=== PATIENT | female | born 1965 | race Caucasian/White ===

== ENCOUNTER 2020-05-18 11:46 | Inpatient (IN) | payer OTHER ==
[~2020-05-18] VITALS: Ht 162.6 cm; Wt 79.4 kg
[2020-05-18 13:09] LABS: RED BLOOD COUNT 5.03 M/UL (4.00-5.10); WHITE BLOOD COUNT 4.6 K/UL (4.5-11.0)
[2020-05-18] MEDS ORDERED: BUSPAR 10MG10 MG PO (18:02)
[2020-05-18] MEDS ORDERED: GLYBURIDE2.5 MG PO (18:03)
[2020-05-18] MEDS ORDERED: ISOSORBIDE DINI30 MG PO (18:04)
[2020-05-18] MEDS ORDERED: ZESTRIL5 MG PO (18:05)
[2020-05-18] MEDS ORDERED: METFORMIN ER1000 MG PO (18:05)
[2020-05-18] MEDS ORDERED: NAPRELAN500 MG PO (18:06)
[2020-05-18] MEDS ORDERED: OMEPRAZOLE20 M1 PO (18:07)
[2020-05-18] MEDS ORDERED: LIPITOR40 MG PO (18:08)
[2020-05-18] MEDS ORDERED: CYMBALTA60 MG PO (18:09)
[2020-05-18] MEDS ORDERED: REMERON15 MG PO (18:10)
[2020-05-18] MEDS ORDERED: ROBAXIN 750 MG750 MG GT (18:10)
[2020-05-19 08:21] LABS: WHITE BLOOD COUNT 2.3 K/UL (4.5-11.0)
[2020-05-19 08:22] LABS: HEMOGLOBIN 11.2 gm/dl (12.3-15.3); RED BLOOD COUNT 3.99 M/UL (4.00-5.10)
[2020-05-19 08:38] LABS: BUN/CREATININE RATIO 26 (0-10)
[2020-05-20 05:44] LABS: HEMOGLOBIN 11.4 gm/dl (12.3-15.3); RED BLOOD COUNT 4.2 M/UL (4.00-5.10)
[2020-05-20 05:48] LABS: WHITE BLOOD COUNT 9.5 K/UL (4.5-11.0)
[2020-05-20 05:52] LABS: BUN/CREATININE RATIO 23 (0-10)
--- NOTE | 2020-05-20 23:08 | NUR ---
pt blood glucose 329 pt drinking regular soda. I explained that this was causing her bg to be elevated. Will pass on to tech and dayshift.
[2020-05-21 04:18] LABS: HEMOGLOBIN 11.8 gm/dl (12.3-15.3); RED BLOOD COUNT 4.29 M/UL (4.00-5.10)
[2020-05-21 04:57] LABS: BUN/CREATININE RATIO 31 (0-10)
[2020-05-22 04:49] LABS: HEMOGLOBIN 12.5 gm/dl (12.3-15.3); RED BLOOD COUNT 4.46 M/UL (4.00-5.10); WHITE BLOOD COUNT 10.2 K/UL (4.5-11.0)
[2020-05-22 05:13] LABS: BUN/CREATININE RATIO 25 (0-10)
--- NOTE | 2020-05-22 18:34 | NUR ---
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 ALLOWED PATIENT TO CONTACT FAMILY, OFFERED GUARDS OPPORTUNITY TO MONITOR PHONE CALL IN PATIENT ROOM AND THEY DECLINED.
--- NOTE | 2020-05-22 20:27 | NUR ---
PATIENT DESAT 70-80S ON CPAP. MD NOTIFIED. ER MD CALLED TO INTUBATE. 6.5 ETT PLACED 23 AT LIP. CENTRAL LINE PLACED RIJ. PT TOLERATED WELL.
[2020-05-23 05:11] LABS: HEMOGLOBIN 12.4 gm/dl (12.3-15.3); RED BLOOD COUNT 4.42 M/UL (4.00-5.10); WHITE BLOOD COUNT 14.6 K/UL (4.5-11.0)
[2020-05-23 05:34] LABS: BUN/CREATININE RATIO 35 (0-10)
[2020-05-24 05:36] LABS: HEMOGLOBIN 11.5 gm/dl (12.3-15.3); RED BLOOD COUNT 4.14 M/UL (4.00-5.10)
[2020-05-24 05:39] LABS: WHITE BLOOD COUNT 7.3 K/UL (4.5-11.0)
[2020-05-24 06:19] LABS: BUN/CREATININE RATIO 43 (0-10)
[2020-05-26 03:53] LABS: HEMOGLOBIN 11.1 gm/dl (12.3-15.3); RED BLOOD COUNT 3.96 M/UL (4.00-5.10)
[2020-05-26 04:20] LABS: BUN/CREATININE RATIO 45 (0-10)
[2020-05-27 05:39] LABS: HEMOGLOBIN 11.2 gm/dl (12.3-15.3); RED BLOOD COUNT 4.01 M/UL (4.00-5.10)
[2020-05-27 05:40] LABS: WHITE BLOOD COUNT 14.7 K/UL (4.5-11.0)
[2020-05-27 06:03] LABS: BUN/CREATININE RATIO 37 (0-10)
[2020-05-28 05:12] LABS: HEMOGLOBIN 9.9 gm/dl (12.3-15.3); WHITE BLOOD COUNT 11.2 K/UL (4.5-11.0)
[2020-05-28 05:13] LABS: RED BLOOD COUNT 3.52 M/UL (4.00-5.10)
[2020-05-28 05:34] LABS: BUN/CREATININE RATIO 51 (0-10)
[2020-05-29 04:43] LABS: HEMOGLOBIN 9.9 gm/dl (12.3-15.3); RED BLOOD COUNT 3.51 M/UL (4.00-5.10)
[2020-05-29 04:56] LABS: BUN/CREATININE RATIO 37 (0-10)
[2020-05-30 05:57] LABS: HEMOGLOBIN 10.2 gm/dl (12.3-15.3); RED BLOOD COUNT 3.63 M/UL (4.00-5.10); WHITE BLOOD COUNT 18.1 K/UL (4.5-11.0)
[2020-05-30 06:21] LABS: BUN/CREATININE RATIO 51 (0-10)
[2020-05-31 03:55] LABS: HEMOGLOBIN 8.7 gm/dl (12.3-15.3)
[2020-05-31 03:56] LABS: RED BLOOD COUNT 3.15 M/UL (4.00-5.10); WHITE BLOOD COUNT 7.1 K/UL (4.5-11.0)
[2020-05-31 04:18] LABS: BUN/CREATININE RATIO 57 (0-10)
[2020-06-01 03:43] LABS: HEMOGLOBIN 9.1 gm/dl (12.3-15.3); RED BLOOD COUNT 3.26 M/UL (4.00-5.10); WHITE BLOOD COUNT 8.7 K/UL (4.5-11.0)
[2020-06-01 04:00] LABS: BUN/CREATININE RATIO 50 (0-10)
[2020-06-02 04:21] LABS: WHITE BLOOD COUNT 7.7 K/UL (4.5-11.0)
[2020-06-02 04:22] LABS: HEMOGLOBIN 11.3 gm/dl (12.3-15.3); RED BLOOD COUNT 4.08 M/UL (4.00-5.10)
[2020-06-02 04:44] LABS: BUN/CREATININE RATIO 52 (0-10)
[2020-06-03 04:29] LABS: HEMOGLOBIN 10.5 gm/dl (12.3-15.3); RED BLOOD COUNT 3.76 M/UL (4.00-5.10); WHITE BLOOD COUNT 8.7 K/UL (4.5-11.0)
[2020-06-03 04:57] LABS: BUN/CREATININE RATIO 47 (0-10)
[2020-06-04 04:53] LABS: HEMOGLOBIN 9.9 gm/dl (12.3-15.3); RED BLOOD COUNT 3.52 M/UL (4.00-5.10)
[2020-06-04 04:54] LABS: WHITE BLOOD COUNT 13.9 K/UL (4.5-11.0)
[2020-06-04 05:20] LABS: BUN/CREATININE RATIO 67 (0-10)
[2020-06-04 10:14] LABS: HBSAG SCREEN Negative (Negative); HEP A AB, IGM Negative (Negative); HEP B CORE AB, IGM Negative (Negative); HEP C VIRUS AB 3.2 (0.0-0.9)
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
[2020-06-05 05:01] LABS: HEMOGLOBIN 10.1 gm/dl (12.3-15.3); RED BLOOD COUNT 3.64 M/UL (4.00-5.10); WHITE BLOOD COUNT 15.7 K/UL (4.5-11.0)
[2020-06-05 05:19] LABS: BUN/CREATININE RATIO 50 (0-10)
[2020-06-06 05:32] LABS: HEMOGLOBIN 10.5 gm/dl (12.3-15.3); RED BLOOD COUNT 3.85 M/UL (4.00-5.10); WHITE BLOOD COUNT 12.6 K/UL (4.5-11.0)
[2020-06-06 05:59] LABS: BUN/CREATININE RATIO 46 (0-10)
[2020-06-07 05:04] LABS: HEMOGLOBIN 9.8 gm/dl (12.3-15.3); RED BLOOD COUNT 3.48 M/UL (4.00-5.10)
[2020-06-07 05:14] LABS: WHITE BLOOD COUNT 18.7 K/UL (4.5-11.0)
[2020-06-07 05:50] LABS: BUN/CREATININE RATIO 41 (0-10)
[2020-06-08 05:38] LABS: HEMOGLOBIN 9.2 gm/dl (12.3-15.3); RED BLOOD COUNT 3.29 M/UL (4.00-5.10); WHITE BLOOD COUNT 15.8 K/UL (4.5-11.0)
[2020-06-08 06:16] LABS: BUN/CREATININE RATIO 35 (0-10)
[2020-06-09 05:17] LABS: HEMOGLOBIN 8.9 gm/dl (12.3-15.3); RED BLOOD COUNT 3.19 M/UL (4.00-5.10); WHITE BLOOD COUNT 13.8 K/UL (4.5-11.0)
[2020-06-09 05:38] LABS: BUN/CREATININE RATIO 43 (0-10)
[2020-06-10 04:52] LABS: HEMOGLOBIN 8.8 gm/dl (12.3-15.3); RED BLOOD COUNT 3.16 M/UL (4.00-5.10); WHITE BLOOD COUNT 10.7 K/UL (4.5-11.0)
[2020-06-10 05:13] LABS: BUN/CREATININE RATIO 69 (0-10)
[2020-06-11 04:59] LABS: HEMOGLOBIN 9.1 gm/dl (12.3-15.3); RED BLOOD COUNT 3.24 M/UL (4.00-5.10); WHITE BLOOD COUNT 8.2 K/UL (4.5-11.0)
[2020-06-11 05:21] LABS: BUN/CREATININE RATIO 51 (0-10)
[2020-06-12 03:52] LABS: HEMOGLOBIN 8.5 gm/dl (12.3-15.3); RED BLOOD COUNT 2.97 M/UL (4.00-5.10); WHITE BLOOD COUNT 9.5 K/UL (4.5-11.0)
[2020-06-12 04:20] LABS: BUN/CREATININE RATIO 51 (0-10)
[2020-06-13 03:31] LABS: HEMOGLOBIN 8.7 gm/dl (12.3-15.3); RED BLOOD COUNT 3.16 M/UL (4.00-5.10)
[2020-06-13 03:32] LABS: WHITE BLOOD COUNT 15.1 K/UL (4.5-11.0)
[2020-06-13 03:50] LABS: BUN/CREATININE RATIO 31 (0-10)
[2020-06-14 05:21] LABS: HEMOGLOBIN 8.8 gm/dl (12.3-15.3); RED BLOOD COUNT 3.24 M/UL (4.00-5.10)
[2020-06-14 05:22] LABS: WHITE BLOOD COUNT 9.1 K/UL (4.5-11.0)
[2020-06-14 05:41] LABS: BUN/CREATININE RATIO 42 (0-10)
[2020-06-15 05:33] LABS: HEMOGLOBIN 8.6 gm/dl (12.3-15.3); RED BLOOD COUNT 3.07 M/UL (4.00-5.10); WHITE BLOOD COUNT 7.7 K/UL (4.5-11.0)
[2020-06-15 05:55] LABS: BUN/CREATININE RATIO 28 (0-10)
[2020-06-16 05:04] LABS: RED BLOOD COUNT 3.25 M/UL (4.00-5.10); WHITE BLOOD COUNT 8.3 K/UL (4.5-11.0)
[2020-06-16 05:58] LABS: BUN/CREATININE RATIO 26 (0-10)
[2020-06-16 16:37] LABS: ADENOVIRUS F 40/41 Not Detected (Negative); ASTROVIRUS Not Detected (Negative); CAMPYLOBACTER Not Detected (Negative); CLOSTRIDIUM DIFFICILE TOX A/B Not Detected (Negative); CRYPTOSPORIDIUM Not Detected (Negative); E.COLI 0157 Not Detected (Negative); ENTAMOEBA HISTOLYTICA Not Detected (Negative); ENTEROAGGREGATIVE E.COLI (EAEC Not Detected (Negative); ENTEROPATHOGENIC E.COLI (EPEC) Not Detected (Negative); ENTEROTOXIGENIC E.COLI (ETEC) Not Detected (Negative); GIARDIA LAMBLIA Not Detected (Negative); NOROVIRUS GI/GII Not Detected (Negative); PLESIOMONAS SHIGELLOIDES Not Detected (Negative); ROTOVIRUS A Not Detected (Negative); SALMONELLA Not Detected (Negative); SAPOVIRUS Not Detected (Negative); SHIG/ENTEROINVAS.ECOLI (EIEC) Not Detected (Negative); SHIGA-LIK TOX.PRO.E.COLI (STEC Not Detected (Negative); VIBRIO Not Detected (Negative); VIBRIO CHOLERAE Not Detected (Negative); YERSINIA ENTEROCOLITICA Not Detected (Negative)
[2020-06-17 04:53] LABS: RED BLOOD COUNT 3.28 M/UL (4.00-5.10); WHITE BLOOD COUNT 8.5 K/UL (4.5-11.0)
[2020-06-17 04:54] LABS: BUN/CREATININE RATIO 24 (0-10)
[2020-06-18 05:36] LABS: HEMOGLOBIN 8.1 gm/dl (12.3-15.3); WHITE BLOOD COUNT 6.5 K/UL (4.5-11.0)
[2020-06-18 05:39] LABS: RED BLOOD COUNT 2.9 M/UL (4.00-5.10)
[2020-06-18 05:54] LABS: BUN/CREATININE RATIO 22 (0-10)
[2020-06-19 05:58] LABS: HEMOGLOBIN 8.7 gm/dl (12.3-15.3); RED BLOOD COUNT 3.15 M/UL (4.00-5.10); WHITE BLOOD COUNT 7.8 K/UL (4.5-11.0)
[2020-06-19 06:17] LABS: BUN/CREATININE RATIO 28 (0-10)
[2020-06-20 06:00] LABS: RED BLOOD COUNT 2.89 M/UL (4.00-5.10); WHITE BLOOD COUNT 6.8 K/UL (4.5-11.0)
[2020-06-20 06:25] LABS: BUN/CREATININE RATIO 31 (0-10)
[2020-06-22 05:03] LABS: HEMOGLOBIN 9.1 gm/dl (12.3-15.3)
[2020-06-22 05:04] LABS: RED BLOOD COUNT 3.31 M/UL (4.00-5.10); WHITE BLOOD COUNT 9.7 K/UL (4.5-11.0)
[2020-06-22 05:24] LABS: BUN/CREATININE RATIO 36 (0-10)
[2020-06-23 05:55] LABS: HEMOGLOBIN 8.3 gm/dl (12.3-15.3); RED BLOOD COUNT 2.98 M/UL (4.00-5.10); WHITE BLOOD COUNT 9.2 K/UL (4.5-11.0)
[2020-06-23 06:19] LABS: BUN/CREATININE RATIO 33 (0-10)
[2020-06-24 05:07] LABS: HEMOGLOBIN 8.7 gm/dl (12.3-15.3); RED BLOOD COUNT 3.14 M/UL (4.00-5.10); WHITE BLOOD COUNT 7.2 K/UL (4.5-11.0)
[2020-06-24 05:42] LABS: BUN/CREATININE RATIO 37 (0-10)
[2020-06-27 03:38] LABS: HEMOGLOBIN 8.1 gm/dl (12.3-15.3); RED BLOOD COUNT 2.93 M/UL (4.00-5.10)
[2020-06-27 03:50] LABS: WHITE BLOOD COUNT 4.9 K/UL (4.5-11.0)
[2020-06-27 04:03] LABS: BUN/CREATININE RATIO 73 (0-10)
[2020-06-28 04:03] LABS: HEMOGLOBIN 8.2 gm/dl (12.3-15.3); RED BLOOD COUNT 2.98 M/UL (4.00-5.10)
[2020-06-28 04:04] LABS: WHITE BLOOD COUNT 6.3 K/UL (4.5-11.0)
[2020-06-28 04:41] LABS: BUN/CREATININE RATIO 57 (0-10)
[2020-06-29 03:58] LABS: RED BLOOD COUNT 2.95 M/UL (4.00-5.10); WHITE BLOOD COUNT 5.3 K/UL (4.5-11.0)
[2020-06-29 04:30] LABS: BUN/CREATININE RATIO 98 (0-10)
[2020-06-30 04:58] LABS: HEMOGLOBIN 8.1 gm/dl (12.3-15.3); RED BLOOD COUNT 2.94 M/UL (4.00-5.10)
[2020-06-30 05:03] LABS: WHITE BLOOD COUNT 6.8 K/UL (4.5-11.0)
[2020-06-30 05:31] LABS: BUN/CREATININE RATIO 95 (0-10)
[2020-07-01 05:13] LABS: RED BLOOD COUNT 2.88 M/UL (4.00-5.10); WHITE BLOOD COUNT 6.3 K/UL (4.5-11.0)
[2020-07-01 05:31] LABS: BUN/CREATININE RATIO 87 (0-10)
[2020-07-02 05:03] LABS: HEMOGLOBIN 9.1 gm/dl (12.3-15.3)
[2020-07-02 05:06] LABS: RED BLOOD COUNT 3.25 M/UL (4.00-5.10); WHITE BLOOD COUNT 9.3 K/UL (4.5-11.0)
[2020-07-02 05:36] LABS: BUN/CREATININE RATIO 71 (0-10)
[2020-07-04 04:55] LABS: HEMOGLOBIN 10.3 gm/dl (12.3-15.3); WHITE BLOOD COUNT 7.1 K/UL (4.5-11.0)
[2020-07-04 05:04] LABS: RED BLOOD COUNT 3.7 M/UL (4.00-5.10)
[2020-07-04 05:20] LABS: BUN/CREATININE RATIO 92 (0-10)
--- NOTE | 2020-07-04 12:43 | NUR ---
18G X 8CM MIDLINE PLACED IN THE RIGHT BRACHIAL VEIN UNDER ULTRASOUND GUIDANCE. ASPIRATES AND FLUSHES WELL. NO COMPLICATIONS. LOT #[id number].
[2020-07-05 06:18] LABS: HEMOGLOBIN 9.7 gm/dl (12.3-15.3); RED BLOOD COUNT 3.45 M/UL (4.00-5.10); WHITE BLOOD COUNT 7.3 K/UL (4.5-11.0)
[2020-07-05 06:31] LABS: BUN/CREATININE RATIO 88 (0-10)
[2020-07-07 07:24] LABS: HEMOGLOBIN 9.8 gm/dl (12.3-15.3); RED BLOOD COUNT 3.58 M/UL (4.00-5.10); WHITE BLOOD COUNT 6.9 K/UL (4.5-11.0)
[2020-07-07 07:55] LABS: BUN/CREATININE RATIO 50 (0-10)
[2020-07-08 05:40] LABS: HEMOGLOBIN 8.9 gm/dl (12.3-15.3); WHITE BLOOD COUNT 5.2 K/UL (4.5-11.0)
[2020-07-08 05:41] LABS: RED BLOOD COUNT 3.11 M/UL (4.00-5.10)
[2020-07-08 06:14] LABS: BUN/CREATININE RATIO 43 (0-10)
[2020-07-14 09:01] LABS: RED BLOOD COUNT 3.29 M/UL (4.00-5.10); WHITE BLOOD COUNT 6.5 K/UL (4.5-11.0)
[2020-07-14 09:31] LABS: BUN/CREATININE RATIO 32 (0-10)
[2020-07-15 07:44] LABS: BUN/CREATININE RATIO 25 (0-10)
[2020-07-17 05:48] LABS: HEMOGLOBIN 10.5 gm/dl (12.3-15.3); RED BLOOD COUNT 3.83 M/UL (4.00-5.10); WHITE BLOOD COUNT 7.1 K/UL (4.5-11.0)
[2020-07-17 06:12] LABS: BUN/CREATININE RATIO 48 (0-10)
[2020-07-18 07:11] LABS: HEMOGLOBIN 9.3 gm/dl (12.3-15.3); RED BLOOD COUNT 3.45 M/UL (4.00-5.10); WHITE BLOOD COUNT 6.6 K/UL (4.5-11.0)
[2020-07-18 07:28] LABS: BUN/CREATININE RATIO 29 (0-10)
[2020-07-19 05:41] LABS: HEMOGLOBIN 9.6 gm/dl (12.3-15.3); RED BLOOD COUNT 3.47 M/UL (4.00-5.10); WHITE BLOOD COUNT 7.5 K/UL (4.5-11.0)
[2020-07-19 06:00] LABS: BUN/CREATININE RATIO 32 (0-10)
[2020-07-20 03:05] LABS: HEMOGLOBIN 10.4 gm/dl (12.3-15.3); RED BLOOD COUNT 3.8 M/UL (4.00-5.10); WHITE BLOOD COUNT 6.5 K/UL (4.5-11.0)
[2020-07-20 03:22] LABS: BUN/CREATININE RATIO 33 (0-10)
[2020-07-21 03:00] LABS: HEMOGLOBIN 10.3 gm/dl (12.3-15.3); RED BLOOD COUNT 3.74 M/UL (4.00-5.10); WHITE BLOOD COUNT 5.3 K/UL (4.5-11.0)
[2020-07-21 03:28] LABS: BUN/CREATININE RATIO 20 (0-10)
[2020-07-22 08:16] LABS: HEMOGLOBIN 11.8 gm/dl (12.3-15.3); WHITE BLOOD COUNT 6.4 K/UL (4.5-11.0)
[2020-07-22 08:17] LABS: RED BLOOD COUNT 4.29 M/UL (4.00-5.10)
[2020-07-22 08:59] LABS: BUN/CREATININE RATIO 38 (0-10)
[2020-07-23 02:43] LABS: HEMOGLOBIN 10.9 gm/dl (12.3-15.3); RED BLOOD COUNT 3.89 M/UL (4.00-5.10); WHITE BLOOD COUNT 6.7 K/UL (4.5-11.0)
[2020-07-23 03:10] LABS: BUN/CREATININE RATIO 37 (0-10)
[2020-07-25 04:03] LABS: HEMOGLOBIN 11.1 gm/dl (12.3-15.3); WHITE BLOOD COUNT 6.2 K/UL (4.5-11.0)
[2020-07-25 04:48] LABS: BUN/CREATININE RATIO 64 (0-10)
[2020-07-29 02:19] LABS: HEMOGLOBIN 10.2 gm/dl (12.3-15.3); RED BLOOD COUNT 3.79 M/UL (4.00-5.10); WHITE BLOOD COUNT 7.8 K/UL (4.5-11.0)
[2020-07-29 02:58] LABS: BUN/CREATININE RATIO 26 (0-10)
[2020-07-29] MEDS ORDERED: NYSTOP60 GM EXT (11:58)
[2020-07-29] MEDS ORDERED: FENTANYL1 EAC3 TOP (11:58)
[2020-07-29] MEDS ORDERED: ZIPRASIDONE IM (11:58)
[2020-07-29] MEDS ORDERED: HUMALOG 10100 UNITS/ SC (11:58)
[2020-07-29] MEDS ORDERED: CARDIZEM 90MG T90 MG PEG (11:58)
[2020-07-29] MEDS ORDERED: ELIQUIS 2.5 MG2.5 MG PEG (11:58)
[2020-07-29] MEDS ORDERED: DIAZEPAM5 MG PEG (11:58)
[2020-07-29] MEDS ORDERED: PROTONIX 40 MG40 M1 PO (11:58)
[2020-07-29] MEDS ORDERED: HYDROCODON-ACE1 EAC4 GT (11:58)
[2020-07-29] MEDS ORDERED: QUETIAPINE FUMA25 MG PO (11:58)
[2020-07-29] MEDS ORDERED: LANTUS INS100 UTS/M1 SC (11:58)
[2020-07-29] MEDS ORDERED: DIGOXIN250 MCG PEG (11:58)
[2020-07-29] MEDS ORDERED: FERROUS SU300 MG/5 M GT (11:58)
[2020-07-29] MEDS ORDERED: QUETIAPINE FUM100 MG PO (11:58)
[2020-07-29] MEDS ORDERED: INDERAL TAB 2020 MG PO (11:58)
[2020-07-29] MEDS ORDERED: MAGIC BUTT CREAM TOP (11:58)
[2020-07-29] MEDS ORDERED: HYDROCORTISONE10 MG PO ×2 (11:58)
--- NOTE | 2020-07-29 14:55 | NUR ---
REPORT CALLED TO BRAD FLORES RN AT [facility].
[2020-10-07] MEDS ORDERED: IPRAT-ALBUT 0.5-3 ML NEB (13:36)
[2020-10-07] MEDS ORDERED: METFORMIN ER1000 MG PO (13:47)
[2020-10-07] MEDS ORDERED: LOPRESSOR 25 MG25 MG PO (13:48)
== END 2020-07-29 17:30 | DRG 4 ==
LOC: ER1 11:46 → CCU 14:57 → PROG CARE 14:57 → MED SURG 4 14:57 → ER1 15:45 → CCU 05-22 00:03 → M/S 07-19 17:23 → PROG CARE 07-19 20:11
PROVIDERS: Emergency Medicine; Internal Medicine; Internal Medicine Infectious Disease; Internal Medicine Pulmonary Disease; ADMIT Family Medicine
PROC: 8E0ZXY6 Isolation (ICD-10-PCS; 2020-05-18)
PROC: XW13325 Transfusion of Convalescent Plasma (Nonautologous) into Peripheral Vein, Percutaneous Approach, New Technology Group 5 (ICD-10-PCS; 2020-05-18)
PROC: XW033E5 Introduction of Remdesivir Anti-infective into Peripheral Vein, Percutaneous Approach, New Technology Group 5 (ICD-10-PCS; 2020-05-18)
PROC: 02H633Z Insertion of Infusion Device into Right Atrium, Percutaneous Approach (ICD-10-PCS; principal; 2020-05-22)
PROC: 5A1955Z Respiratory Ventilation, Greater than 96 Consecutive Hours (ICD-10-PCS; 2020-05-22)
PROC: B548ZZA Ultrasonography of Superior Vena Cava, Guidance (ICD-10-PCS; 2020-05-22)
PROC: 0BH17EZ Insertion of Endotracheal Airway into Trachea, Via Natural or Artificial Opening (ICD-10-PCS; 2020-05-22)
PROC: 0DH67UZ Insertion of Feeding Device into Stomach, Via Natural or Artificial Opening (ICD-10-PCS; 2020-05-23)
PROC: 3E0G76Z Introduction of Nutritional Substance into Upper GI, Via Natural or Artificial Opening (ICD-10-PCS; 2020-05-23)
PROC: 0B21XEZ Change Endotracheal Airway in Trachea, External Approach (ICD-10-PCS; 2020-05-29)
PROC: 0B110F4 Bypass Trachea to Cutaneous with Tracheostomy Device, Open Approach (ICD-10-PCS; 2020-06-07)
PROC: 0BJ08ZZ Inspection of Tracheobronchial Tree, Via Natural or Artificial Opening Endoscopic (ICD-10-PCS; 2020-06-07)
PROC: 0DH68UZ Insertion of Feeding Device into Stomach, Via Natural or Artificial Opening Endoscopic (ICD-10-PCS; 2020-06-07)
PROC: 3E0G76Z Introduction of Nutritional Substance into Upper GI, Via Natural or Artificial Opening (ICD-10-PCS; 2020-06-07)
PROC: 5A1955Z Respiratory Ventilation, Greater than 96 Consecutive Hours (ICD-10-PCS; 2020-06-07)
DX: A41.9 Sepsis, unspecified organism (principal); R65.21 Severe sepsis with septic shock; U07.1 COVID-19; J12.82 Pneumonia due to coronavirus disease 2019; J80 Acute respiratory distress syndrome; G92 Toxic encephalopathy; G93.41 Metabolic encephalopathy; E43 Unspecified severe protein-calorie malnutrition; J44.0 Chronic obstructive pulmonary disease with (acute) lower respiratory infection; F05 Delirium due to known physiological condition; E27.40 Unspecified adrenocortical insufficiency; E87.0 Hyperosmolality and hypernatremia; N39.0 Urinary tract infection, site not specified; D53.9 Nutritional anemia, unspecified; F32.9 Major depressive disorder, single episode, unspecified; I99.8 Other disorder of circulatory system; B96.20 Unspecified Escherichia coli [E. coli] as the cause of diseases classified elsewhere; F43.10 Post-traumatic stress disorder, unspecified; E09.65 Drug or chemical induced diabetes mellitus with hyperglycemia; E88.09 Other disorders of plasma-protein metabolism, not elsewhere classified; K44.9 Diaphragmatic hernia without obstruction or gangrene; K59.00 Constipation, unspecified; K31.84 Gastroparesis; B19.20 Unspecified viral hepatitis C without hepatic coma; R50.9 Fever, unspecified; T38.0X5A Adverse effect of glucocorticoids and synthetic analogues, initial encounter; R06.82 Tachypnea, not elsewhere classified; E78.5 Hyperlipidemia, unspecified; F41.9 Anxiety disorder, unspecified; I10 Essential (primary) hypertension; I95.9 Hypotension, unspecified; R74.01 Elevation of levels of liver transaminase levels; F41.0 Panic disorder [episodic paroxysmal anxiety]; R00.0 Tachycardia, unspecified; E87.70 Fluid overload, unspecified; Z88.2 Allergy status to sulfonamides; Z87.891 Personal history of nicotine dependence; Z79.84 Long term (current) use of oral hypoglycemic drugs; Z79.4 Long term (current) use of insulin; Z79.899 Other long term (current) drug therapy
CPT/HCPCS: ECHO; 31500; 36415; 36600; 70450; 71045; 74018; 74230; 80048; 80053; 80074; 80202; 81001; 82140; 82533; 82607; 82728; 82803; 82962; 83036; 83605; 83615; 83735; 83880; 84100; 84132; 84443; 85025; 85027; 85379; 85384; 85610; 85730; 86140; 86900; 86901; 86927; 87040; 87070; 87077; 87086; 87186; 87205; 87507; 92526; 92610; 92611-GN; 93005; 93306; 93925; 94002; 94003; 94640; 94660; 94760; 94762; 94770; 95816; 96374; 96375; 96376; 97110; 97110-GP-CQ; 97163; 97167; 97530; 97530-GP-CQ; 99285; C1751; C1769; C9113; J0330; J0690; J0692; J0834; J1100; J1160; J1205; J1335; J1610; J1630; J1650; J1720; J1885; J1940; J2060; J2250; J2270; J2370; J2405; J2543; J2704; J2765; J3010; J3370; J3475; J3486; J7030; J7040; J7050; J7070; J7120; P9047; Q0177; U0002

== ENCOUNTER 2020-10-01 13:55 | Inpatient (IN) | payer OTHER ==
[~2020-10-01] VITALS: Ht 162.6 cm; Wt 72.6 kg
[~2020-10-01 13:55] MED LIST: BUSPAR 10MG10 MG PO; CARDIZEM 90MG T90 MG PEG; CYMBALTA60 MG PO; DIAZEPAM5 MG PEG; DIGOXIN250 MCG PEG; ELIQUIS 2.5 MG2.5 MG PEG; FENTANYL1 EAC3 TOP; FERROUS SU300 MG/5 M GT; GLYBURIDE2.5 MG PO; HUMALOG 10100 UNITS/ SC; HYDROCODON-ACE1 EAC4 GT; HYDROCORTISONE10 MG PO; INDERAL TAB 2020 MG PO; ISOSORBIDE DINI30 MG PO; LANTUS INS100 UTS/M1 SC; LIPITOR40 MG PO; MAGIC BUTT CREAM TOP; METFORMIN ER1000 MG PO; NAPRELAN500 MG PO; NYSTOP60 GM EXT; OMEPRAZOLE20 M1 PO; PROTONIX 40 MG40 M1 PO; QUETIAPINE FUM100 MG PO; QUETIAPINE FUMA25 MG PO; REMERON15 MG PO; ROBAXIN 750 MG750 MG GT; ZESTRIL5 MG PO; ZIPRASIDONE IM
[2020-10-01 14:58] LABS: RED BLOOD COUNT 5.06 M/UL (4.00-5.10); WHITE BLOOD COUNT 5.8 K/UL (4.5-11.0)
[2020-10-01 15:22] LABS: BUN/CREATININE RATIO 16 (0-10)
[2020-10-01] MEDS ORDERED: METFORMIN ER1000 MG PO (20:32)
[2020-10-01] MEDS ORDERED: ELIQUIS5 MG PO (20:33)
[2020-10-01] MEDS ORDERED: CYMBALTA 30 MG30 MG PO (20:33)
[2020-10-02 02:59] LABS: HEMOGLOBIN 10.4 gm/dl (12.3-15.3); RED BLOOD COUNT 3.81 M/UL (4.00-5.10); WHITE BLOOD COUNT 7.4 K/UL (4.5-11.0)
[2020-10-02] MEDS ORDERED: FERROUS SULFAT325 M2 PO (11:05)
[2020-10-02] MEDS ORDERED: REGLAN10 MG PO (11:06)
[2020-10-02] MEDS ORDERED: ZOFRAN ODT 4 MG4 MG PO (11:06)
[2020-10-02] MEDS ORDERED: VENTOLIN HFA 66.7 GM INH (11:07)
[2020-10-02] MEDS ORDERED: REMERON15 MG PO (11:07)
[2020-10-02] MEDS ORDERED: SYMBICORT 16010.2 GM INH (11:07)
[2020-10-02] MEDS ORDERED: METHOCARBAMOL500 MG PO (11:08)
[2020-10-02] MEDS ORDERED: TYLENOL325 MG PO (11:09)
[2020-10-03 05:36] LABS: HEMOGLOBIN 9.6 gm/dl (12.3-15.3); RED BLOOD COUNT 3.53 M/UL (4.00-5.10)
[2020-10-03 05:42] LABS: WHITE BLOOD COUNT 3.4 K/UL (4.5-11.0)
[2020-10-03 05:54] LABS: BUN/CREATININE RATIO 9 (0-10)
[2020-10-04 05:15] LABS: HEMOGLOBIN 8.7 gm/dl (12.3-15.3); RED BLOOD COUNT 3.21 M/UL (4.00-5.10)
[2020-10-04 05:16] LABS: WHITE BLOOD COUNT 2.3 K/UL (4.5-11.0)
[2020-10-04 07:18] LABS: BUN/CREATININE RATIO 12 (0-10)
[2020-10-05 05:46] LABS: RED BLOOD COUNT 2.94 M/UL (4.00-5.10)
[2020-10-05 05:51] LABS: WHITE BLOOD COUNT 3.3 K/UL (4.5-11.0)
[2020-10-05 06:20] LABS: BUN/CREATININE RATIO 17 (0-10)
[2020-10-06 03:51] LABS: HEMOGLOBIN 7.8 gm/dl (12.3-15.3); RED BLOOD COUNT 2.88 M/UL (4.00-5.10)
[2020-10-06 04:30] LABS: BUN/CREATININE RATIO 14 (0-10)
[2020-10-07 04:38] LABS: BUN/CREATININE RATIO 18 (0-10)
[2020-10-07] MEDS ORDERED: IPRAT-ALBUT 0.5-3 ML NEB (13:36)
[2020-10-07] MEDS ORDERED: METFORMIN ER1000 MG PO (13:47)
[2020-10-07] MEDS ORDERED: LOPRESSOR 25 MG25 MG PO (13:48)
[2020-10-08] MEDS ORDERED: LASIX 40 MG TAB40 MG PO (07:04)
[2020-10-08] MEDS ORDERED: K-DUR TAB 10 M10 MEQ PO (07:04)
== END 2020-10-07 17:59 | DRG 853 ==
LOC: ER1 13:55 → CDU 16:58 → MED SURG 4 16:58 → CCU 16:58 → MED SURG 4 10-05 11:11
PROVIDERS: Emergency Medicine; Internal Medicine; ADMIT Internal Medicine
PROC: 3E033XZ Introduction of Vasopressor into Peripheral Vein, Percutaneous Approach (ICD-10-PCS; principal; 2020-10-01)
PROC: B24BZZ4 Ultrasonography of Heart with Aorta, Transesophageal (ICD-10-PCS; 2020-10-02)
PROC: 0FT44ZZ Resection of Gallbladder, Percutaneous Endoscopic Approach (ICD-10-PCS; 2020-10-04)
DX: A41.9 Sepsis, unspecified organism (principal); R65.21 Severe sepsis with septic shock; J96.01 Acute respiratory failure with hypoxia; Z20.822 Contact with and (suspected) exposure to COVID-19; E43 Unspecified severe protein-calorie malnutrition; R57.1 Hypovolemic shock; R57.0 Cardiogenic shock; K81.0 Acute cholecystitis; I42.8 Other cardiomyopathies; F11.20 Opioid dependence, uncomplicated; E27.40 Unspecified adrenocortical insufficiency; N30.00 Acute cystitis without hematuria; E87.1 Hypo-osmolality and hyponatremia; I11.0 Hypertensive heart disease with heart failure; K74.60 Unspecified cirrhosis of liver; D63.8 Anemia in other chronic diseases classified elsewhere; I44.1 Atrioventricular block, second degree; E87.6 Hypokalemia; E88.09 Other disorders of plasma-protein metabolism, not elsewhere classified; E78.5 Hyperlipidemia, unspecified; E11.9 Type 2 diabetes mellitus without complications; J84.10 Pulmonary fibrosis, unspecified; B19.20 Unspecified viral hepatitis C without hepatic coma; F19.10 Other psychoactive substance abuse, uncomplicated; R53.81 Other malaise; R00.1 Bradycardia, unspecified; Z86.16 Personal history of COVID-19; Z79.4 Long term (current) use of insulin; Z79.01 Long term (current) use of anticoagulants; Z88.2 Allergy status to sulfonamides; Z68.27 Body mass index [BMI] 27.0-27.9, adult
CPT/HCPCS: ECHO; 36415; 36556; 71045; 76705; 80048; 80053; 80162; 80307; 81001; 82550; 82553; 82962; 83605; 83735; 83880; 84100; 84132; 84484; 85025; 85610; 87040; 87077; 87086; 87186; 93005; 93306; 94640; 94760; 96374; 99285; C9113; J0696; J1720; J1885; J1940; J2185; J2250; J2270; J2405; J2550; J2704; J3010; J3475; J3480; J3486; J7030; J7120; P9041; Q9967; U0002

== ENCOUNTER 2020-10-08 01:31 | Emergency (ER) | payer OTHER ==
[~2020-10-08 01:31] MED LIST changes: +CYMBALTA 30 MG30 MG PO; +ELIQUIS5 MG PO; +FERROUS SULFAT325 M2 PO; +IPRAT-ALBUT 0.5-3 ML NEB; +LOPRESSOR 25 MG25 MG PO; +METHOCARBAMOL500 MG PO; +REGLAN10 MG PO; +SYMBICORT 16010.2 GM INH; +TYLENOL325 MG PO; +VENTOLIN HFA 66.7 GM INH; +ZOFRAN ODT 4 MG4 MG PO
[2020-10-08 03:00] LABS: BUN/CREATININE RATIO 18 (0-10)
[2020-10-08 03:04] LABS: HEMOGLOBIN 9.9 gm/dl (12.3-15.3); RED BLOOD COUNT 3.67 M/UL (4.00-5.10); WHITE BLOOD COUNT 9.3 K/UL (4.5-11.0)
[2020-10-08] MEDS ORDERED: LASIX 40 MG TAB40 MG PO (07:04)
[2020-10-08] MEDS ORDERED: K-DUR TAB 10 M10 MEQ PO (07:04)
== END 2020-10-08 07:37 ==
LOC: ER1 01:31
PROVIDERS: Family Medicine
DX: I50.9 Heart failure, unspecified (principal); Z88.2 Allergy status to sulfonamides
CPT/HCPCS: 36600; 71045; 80053; 82550; 82553; 82803; 82962; 83874; 83880; 84484; 85025; 85379; 93005; 96374; 96375; 99285; J1940; J2405; Q9967